=== PATIENT | male | born 1975 | race African-American/Black ===

== ENCOUNTER 2023-11-07 14:21 | Outpatient (CLI) | payer OTHER ==
[2023-11-07 15:32] LABS: #Basophils 0.1 10x3/uL (0.0-0.2); #Eosinphils 0.1 10x3/uL (0.0-0.5); #Monocytes 0.6 10x3/uL (0.0-1.1); #Neutrophils 4.2 10x3/uL (1.5-8.4); %Basophils 0.7 % (0.0-2.0); %Eosinophils 1.6 % (0.0-6.0); %Lymphocytes 26.7 % (18.0-47.0); %Monocytes 8.6 % (0.0-10.0); %Neutrophils 62.1 % (40.0-75.0); Hemoglobin 15.3 g/dL (13.5-17.5); Mean Corpuscular HGB CONC 32.6 g/dL (32.0-36.0); Mean Corpuscular Hemoglobin 27.8 pg (27.0-33.0); Mean Corpuscular Volume 85.5 fl (81.2-95.1); Platelet Count 384 10x3/uL (150-450); RBC Distribution Width 13.2 % (11.5-14.5); White Blood Cell (WBC) Count 6.7 10x3/uL (3.5-10.5)
== END 2023-11-07 14:22 | disposition home or self-care (01) ==
LOC: LABBT 14:21
PROVIDERS: ATTEND Orthopaedic Surgery
DX: Z01.812 Encounter for preprocedural laboratory examination (principal); M21.951 Unspecified acquired deformity of right thigh
CPT/HCPCS: 85025